=== PATIENT | female | born 1995 | race Two or more races ===

== ENCOUNTER 2020-08-31 16:55 | Emergency (ER) | payer SELFPAY ==
[~2020-08-31] VITALS: Ht 165.1 cm; Wt 108.5 kg
--- NOTE | 2020-08-31 18:08 | NUR ---
Pt had home covid test and was positive, pt then went to [facility] and got tested but has not heard back from [facility]. Pt in room resting. Does not appear in distress. Vitals wnl and unlabored breathing. Pt connected to monitors and call light in reach.
[2020-08-31 18:43] VITALS: BP 124/68
--- NOTE | 2020-08-31 18:43 | NUR ---
Patient/Caregiver given discharge instructions and they have confirmed that they understand the instructions. Patient ambulatory with steady gait.
== END 2020-08-31 18:46 | disposition home or self-care (01) ==
LOC: ED 18:40
DX: U07.1 COVID-19 (principal); J06.9 Acute upper respiratory infection, unspecified; J40 Bronchitis, not specified as acute or chronic; R06.00 Dyspnea, unspecified; R50.9 Fever, unspecified; R05 Cough; M79.10 Myalgia, unspecified site; R51.9 Headache, unspecified
CPT/HCPCS: 71045; 99283

== ENCOUNTER 2021-06-20 20:31 | Emergency (ER) | payer OTHER ==
[~2021-06-20] VITALS: Ht 165.1 cm; Wt 107.0 kg
[2021-06-20 20:34] VITALS: BP 13/84
== END 2021-06-20 22:33 | disposition home or self-care (01) ==
LOC: ED 21:45
DX: H66.002 Acute suppurative otitis media without spontaneous rupture of ear drum, left ear (principal)
CPT/HCPCS: 99283